=== PATIENT | female | born 1980 | race Caucasian/White ===

== ENCOUNTER 2017-02-17 19:52 | Emergency (ER) | payer MEDICAID ==
[~2017-02-17] VITALS: Ht 162.6 cm; Wt 54.4 kg
--- NOTE | 2017-02-17 20:22 | NUR ---
Patient walked in to ER c/o small abscess to her LEFT back. To room 3A.
--- NOTE | 2017-02-17 21:20 | NUR ---
ERMD at bedside for MSE.
[2017-02-17] MEDS ORDERED: LIDOCAINE HCL 1% 20 ML VIAL IJ ONE (21:30)
[2017-02-17] MEDS ORDERED: SULFAMETH/TRIMETH 800/160 MG TABLET PO ONE (21:45)
--- NOTE | 2017-02-17 21:55 | NUR ---
Patient discharged to home in stable conditon. Written and verbal after care instructions given. Patient verbalizes understanding of instructions.
[2017-02-17] MEDS ORDERED: SULFAMETH/TRIMETH 800/160 MG TABLET ONE (22:05)
== END 2017-02-17 21:56 | disposition home or self-care (01) ==
LOC: ER 19:54
DX: L08.9 Local infection of the skin and subcutaneous tissue, unspecified (principal); L72.3 Sebaceous cyst
CPT/HCPCS: 10160; 99284; A4663; J3490

== ENCOUNTER 2017-05-20 19:23 | Emergency (ER) | payer MEDICAID ==
[~2017-05-20] VITALS: Ht 165.1 cm; Wt 54.4 kg
[2017-05-20] MEDS ORDERED: ASPIRIN 325 MG TABLET PO ONE (20:00)
[2017-05-20] MEDS ORDERED: IV NORMAL SALINE 500 ML BAG IV ONE (20:00)
[2017-05-20] MEDS ORDERED: NITROGLYCERIN 0.4 MG/TAB BOTTLE SL ONE ×2 (20:00→20:33)
[2017-05-20 20:29] LABS: BASOPHILS % (AUTO) 0.7 % (0.0-2.0); EOSINOPHILS # (AUTO) 0.1 K/uL (0.0-0.7); EOSINOPHILS % (AUTO) 2.2 % (0.0-7.0); HEMATOCRIT 31.6 % (31.2-41.9); HEMOGLOBIN 10.5 g/dL (10.9-14.3); LYMPHOCYTES # (AUTO) 2.5 K/uL (20.0-40.0); LYMPHOCYTES % (AUTO) 49.9 % (20.5-51.5); MEAN CORPUSCULAR HEMOGLOBIN 27.1 uug (24.7-32.8); MEAN CORPUSCULAR HGB CONC 33 g/dL (32.3-35.6); MEAN CORPUSCULAR VOLUME 81.2 fL (75.5-95.3); MONOCYTES # (AUTO) 0.3 K/uL (2.0-10.0); MONOCYTES % (AUTO) 6.5 % (0.0-11.0); NEUTROPHILS % (AUTO) 40.7 % (38.5-71.5); PLATELET COUNT (AUTO) 256 K/uL (179-408); RED BLOOD CELL COUNT(AUTO) 3.89 MIL/uL (3.63-4.92)
[2017-05-20] MEDS ORDERED: ASPIRIN 325 MG TABLET ONE (20:33)
[2017-05-20 20:39] LABS: CREATININE 0.9 mg/dL (0.6-1.3); POTASSIUM 3.5 mmol/L (3.5-5.1)
[2017-05-20 20:52] LABS: BILIRUBIN,DIRECT 0.1 mg/dL (0.0-0.2); BILIRUBIN,TOTAL 0.4 mg/dL (0.2-1.0); TOTAL PROTEIN, SERUM 6.8 g/dL (6.4-8.2)
--- NOTE | 2017-05-20 21:07 | NUR ---
Patient discharged to home in stable conditon. Written and verbal after care instructions given. Patient verbalizes understanding of instructions.
[2017-05-20 21:27] VITALS: BP 86/40
== END 2017-05-20 21:07 | disposition home or self-care (01) ==
LOC: ER 19:25
DX: R07.89 Other chest pain (principal)
CPT/HCPCS: 36415; 70030-TC; 71045; 85025; 85730; 93005; A4663; J7030; J7040

== ENCOUNTER 2019-06-06 14:53 | Emergency (ER) | payer BC, MEDICAID ==
[~2019-06-06] VITALS: Ht 162.6 cm; Wt 61.2 kg
[2019-06-06 16:00] LABS: *URINE HCG, QUAL NEGATIVE (NEGATIVE)
--- NOTE | 2019-06-06 16:25 | NUR ---
Dr Lara made patient aware of test results will be dc home.
--- NOTE | 2019-06-06 16:32 | NUR ---
Patient discharged to home in stable condition. Written and verbal after care instructions given. Patient verbalizes understanding of instructions.
[2019-06-06 16:35] VITALS: BP 107/68
== END 2019-06-06 16:36 | disposition home or self-care (01) ==
LOC: ER 14:53
DX: M54.5 Low back pain (principal); W10.8XXA Fall (on) (from) other stairs and steps, initial encounter; Y93.89 Activity, other specified; Y92.89 Other specified places as the place of occurrence of the external cause; Y99.8 Other external cause status
CPT/HCPCS: 72100; 72220; 84703; A4663